=== PATIENT | male | born 1985 | race Caucasian/White ===

== ENCOUNTER 2018-07-13 20:06 | Emergency (ER) | payer MEDICAID ==
[~2018-07-13] VITALS: Ht 157.5 cm; Wt 75.0 kg
[2018-07-13 20:54] VITALS: BP 142/78
== END 2018-07-13 20:54 | disposition home or self-care (01) ==
LOC: ER 20:06
DX: L03.115 Cellulitis of right lower limb (principal)
CPT/HCPCS: 99283

== ENCOUNTER 2021-05-10 20:49 | Emergency (ER) | payer MEDICAID ==
[~2021-05-10] VITALS: Ht 157.5 cm; Wt 73.0 kg
[2021-05-10 22:20] VITALS: BP 124/89
== END 2021-05-10 22:24 | disposition home or self-care (01) ==
LOC: ER 20:49
DX: T58.8X1A Toxic effect of carbon monoxide from other source, accidental (unintentional), initial encounter (principal); Y92.89 Other specified places as the place of occurrence of the external cause
CPT/HCPCS: 93005; 99283